=== PATIENT | male | born 1980 | race Caucasian/White ===

== ENCOUNTER 2017-07-02 11:06 | Emergency (ER) | payer MEDICAID ==
[~2017-07-02] VITALS: Ht 172.7 cm; Wt 136.5 kg
[2017-07-02 11:24] VITALS: Ht 172.7 cm; Wt 136.5 kg
[2017-07-02] MEDS ORDERED: CLIN-73 PO (12:36)
[2017-07-02] MEDS ORDERED: OFLO5DRO46 RIGHT EYE (12:36)
--- NOTE | 2017-07-02 13:20 | ERD ---
ER Documentation Chief Complaint Chief Complaint RIGHT EYE RIGHT, SWOLLEN DRAINING X2 WKS HPI 36-year-old male complaining of right eyelid swollen and pain 2 weeks. Patient reports purulent discharge from the right eye. Denies fever or chills. Denies decreased vision. Denies eye trauma or foreign body. ROS All systems reviewed and are negative except as per history of present illness. Medications Home Meds Active Scripts Clindamycin Hcl* (Clindamycin Hcl*) 300 Mg Capsule, 300 MG PO TID for 10 Days, CAP Prov:RAVINDER RUELAS FIELD RESEARCH ASSOCIATE 07/02/17 Ofloxacin* (Ocuflox*) 0.3%-5 Ml Ophth Drops, 1 DROP RIGHT EYE QID for 7 Days, BOTTLE Prov:RAVINDER RUELAS FIELD RESEARCH ASSOCIATE 07/02/17 Allergies Allergies: Coded Allergies: No Known Allergy (Unverified , 07/02/17) PMhx/Soc Medical and Surgical Hx: pt denies Medical Hx History of Surgery: No Anesthesia Reaction: No Hx Neurological Disorder: No Hx Respiratory Disorders: No Hx Cardiac Disorders: No Hx Psychiatric Problems: No Hx Miscellaneous Medical Probl: No Hx Alcohol Use: No Hx Substance Use: No Hx Tobacco Use: No Smoking Status: Never smoker Physical Exam Vitals Vital Signs Date Time Temp Pulse Resp B/P Pulse Ox O2 Delivery O2 Flow Rate FiO2 07/02/17 11:24 99.2 87 18 138/81 98 Physical Exam General: Well-developed, well-nourished, conscious and coherent, in no distress Skin: Warm and dry without rash, good texture and turgor Head: Normocephalic without evidence of trauma Eyes: Sclera and conjunctivae normal; pupils equal, round, and reactive to light; extraocular movements are intact. When you external into the internal stye noted in the right lower eyelid, right lower lid erythematous and indurated , tender. No purulent drainage. Chest: Normal AP diameter. Good expansion without retractions. Nontender. Lungs are clear to auscultate bilaterally with good tidal volume Heart: Regular rate and rhythm. No murmur, rub, or gallops heard Extremities: Full range of motion. Good strength bilaterally. No clubbing, cyanosis, or edema. Peripheral pulses are intact. Sensation intact Neuro: Alert and oriented 4, GCS 15. Cranial nerves grossly intact. Motor and sensory exams nonfocal. Moves all extremities. Speech clear. Gait normal Procedures/MDM Well-appearing 36-year-old male present ED with stye in the right lower eyelid 2 weeks. Patient also appeared to developed preseptal cellulitis in the right lower lid. Visual acuity left 20/25, right 20-40, bilateral 20/20. I doubt orbital cellulitis. Patient appears well, stable for discharge and outpatient management. Medical decision making shared with patient and family. Education provided to patient and family. Patient and family expressed understanding of the plan. Medications on discharge: Ofloxacin ophthalmic, clindamycin. Follow-up: Breaker Boss in 2-3 days if no improvement. Disclaimer: Inadvertent spelling and grammatical errors are likely due to EHR/ dictation software use and do not reflect on the overall quality of patient care. Also, please note that the electronic time recorded on this note does not necessarily reflect the actual time of the patient encounter. Departure Diagnosis: Primary Impression: Stye Additional Impression: Preseptal cellulitis of right lower eyelid Condition: Stable Patient Instructions: Mary Jane-Orbital Cellulitis, Sty Referrals: [facility] () Usted se dan hecho un examen mdico de control que le indica que no est en chito condicin que requiera tratamiento urgente en el Departamento de Emergencia. Un estudio ms profundo y el tratamiento de calderon condicin pueden esperar sin ningn riesgo hasta que usted sea atendida/o en el consultorio de calderon mdico o chito cl gavino. Es responsabilidad suya arreglar chito ailyn para el seguimiento del christina. MANEJO DE CONDICIONES NO URGENTES EN EL FUTURO 1) Si usted tiene un mdico de atencin primaria: Usted debera llamar a calderon mdico de atencin primaria antes de venir al departamento de emergencia. Despus de las horas de consultorio, calderon doctor o calderon asociado/a est disponible por telfono. El mdico o enfermero de martha en el servicio telefnico puede asesorarle por viktor medio para atender el problema, o christina contrario se puede programar chito ailyn. 2) Si usted no tiene un mdico de atencin primaria: Llame al mdico o clnica de referencia que aparece abajo jeanie las horas de consultorio para hacer chito ailyn para que le vean. CLINICAS: [facility] [phone] [facility] [phone] [facility] [phone] [facility] [phone] [place] [id number] [phone] [facility] [phone] [address] [facility] Hours: Mon - Fri 9:00 AM - 5:00 PM Additional Instructions: Llame al doctor MAANA y tracey chito AILYN PARA DENTRO DE 2-3 [place].Dgale a la secretaria que nosotros le instruimos hacer esta ailyn.Avise o llame si calderon condicin se empeora antes de la ailyn. Regresa aqui si peor o no mejor. RAVINDER RUELAS. BUCK Jul 02, 2017 13:20
== END 2017-07-02 12:52 | disposition home or self-care (01) ==
LOC: FTE 11:06
DX: H00.012 Hordeolum externum right lower eyelid (principal); L03.213 Periorbital cellulitis
CPT/HCPCS: 99283